=== PATIENT | male | born 1985 | race Caucasian/White ===

== ENCOUNTER → 2020-09-26 09:25 | Outpatient (CLI) | payer OTHER, SELFPAY ==
[2020-09-26 08:08] VITALS: BMI 42.2
[2020-09-26 12:30] LABS: Hematocrit 49.4 % (40-54); Hemoglobin 15.8 g/dL (13.0-16.5); Mean Corpuscular Hgb 27.7 pg (27.0-32.0); Mean Corpuscular Volume 86.7 fL (80-94); Mean Platelet Vol. 9.9 fl (6.2-12.0); Platelet Count 330 K/mm3 (150-450); RBC Distribution Width CV 13.2 % (11.6-14.6); RBC Distribution Width SD 41.4 fl (35.1-43.9); White Blood Count 7.5 K/mm3 (4.4-11.0)
[2020-09-30 07:25] LABS: Vitamin B1, Thiamine 181.9 nmol/L (66.5-200.0)
== END ==
PROVIDERS: PCP Family Medicine; Referring Provider Psychiatry & Neurology Neurology; Visit Provider Psychiatry & Neurology Neurology
DX: H81.90 Unspecified disorder of vestibular function, unspecified ear (principal); G44.209 Tension-type headache, unspecified, not intractable
CPT/HCPCS: 36415; 84425; 85027

== ENCOUNTER → 2020-10-15 15:28 | Outpatient (CLI) | payer OTHER, SELFPAY ==
[2020-09-26 08:08] VITALS: BMI 42.2
--- NOTE | 2020-10-15 15:29 | MRI_ITS ---
STUDY: MRI BRAIN WITH AND WITHOUT CONTRAST (ATTENTION INTERNAL AUDITORY CANALS - I.A.C.''s) REASON FOR EXAM: Male, 35 years old. peripheral vestibulopathy, Tension Headache TECHNIQUE: Standardized multiplanar fat and water weighted pulse sequences were obtained. 28ML IV DOTAREM was administered for the contrast portion of the examination. COMPARISON: None. FINDINGS: Normal bilateral temporal bones. Normal bilateral internal auditory canals. There is no demonstrated intracanalicular or cisternal vestibular schwannoma (acoustic neuroma). There is no enhancement of the bilateral VIIth or VIIIth cranial nerves. Normal bilateral cochlea, vestibules and semicircular canals. Normal size of the ventricles and extra-axial spaces for the patient''s age. Normal white matter tracts of the supratentorial brain. Normal bilateral basal ganglia. Normal thalami. Normal flow voids within the major intracranial circulation suggesting patency by spin echo criteria. Normal venous enhancement. There is no enhancing intra-axial or extra-axial abnormality. There is no extra-axial fluid accumulation. Normal sella turcica, pituitary gland, infundibular stalk, optic chiasm and hypothalamus. Normal tectal plate and pineal gland. Normal midbrain, lynn and medulla. Normal cerebellum. Normal basal cisterns. No demonstrated orbital abnormality, within the constraints of a routine brain study. Polyp or mucous retention cyst within the floor of the right maxillary sinus.. Normal calvarium and skull base. Normal visualized soft tissue structures. Normal visualized upper cervical spine. MRI/Brain W/WO Contrast IMPRESSION: Normal unenhanced and enhanced MRI of the bilateral internal auditory canals (I.A.C''s). Small right maxillary sinus polyp or mucous retention cyst Electronically Signed: Zackary Bower MD at 16:59 EDT , Service support ,
== END ==
PROVIDERS: PCP Family Medicine; Referring Provider Psychiatry & Neurology Neurology; Visit Provider Psychiatry & Neurology Neurology
DX: H81.90 Unspecified disorder of vestibular function, unspecified ear (principal); G44.209 Tension-type headache, unspecified, not intractable
CPT/HCPCS: 70553; A9575